=== PATIENT | female | born 1980 | race Two or more races ===

== ENCOUNTER 2016-12-01 13:10 | Emergency (ER) | payer BC ==
[~2016-12-01] VITALS: Ht 162.6 cm; Wt 68.0 kg
[~2016-12-01 13:10] MED LIST: AZITHROMYCIN250 MG PO; GUAIFENESIN DM118 M1 PO; NAPROSYN500 M1 ORAL; NKM; NORCO 5-325 TA1 EACH ORAL
--- NOTE | 2016-12-01 13:58 | Emergency Room Report ---
History of Present Illness General Chief Complaint: Upper Respiratory Illness Source: Patient Present Illness HPI 36-year-old female presents to emergency Department complaining of cough, wheezing, rhinorrhea times one week. Patient states that she finished a Z-Dharmesh and yesterday was seen at an urgent care and given a shot of penicillin. Patient states that her symptoms have not improved. Patient states she is out of albuterol for the nebulizer at home. Patient also states she took a round of prednisone which improved her wheezing. Denies nausea, vomiting, fevers, chills. Denies CP, Palpitations, LOC, AMS, dizziness, Changes in Vision, Sensation, paresthesias, or a sudden severe headache. Allergies: Coded Allergies: No Known Allergies (Unverified , 12/02/12) Patient History Past Medical History: see triage record Past Surgical History: none Pertinent Family History: none Last Menstrual Period: 11/04/16 Now: No Immunizations: UTD Reviewed Nursing Documentation: PMH: Agreed, PSxH: Agreed Nursing Documentation-PMH Hx Cardiac Problems: Yes - hypothyroidism History Of Psychiatric Problem: Yes - Anxiety Review of Systems All Other Systems: negative except mentioned in HPI Physical Exam Vital Signs Date Time Temp Pulse Resp B/P Pulse Ox O2 Delivery O2 Flow Rate FiO2 12/01/16 13:33 98.4 92 16 112/75 98 Room Air Sp02 EP Interpretation: reviewed, normal General Appearance: no apparent distress, alert, GCS 15, non-toxic Head: normocephalic, atraumatic Eyes: bilateral eye PERRL, bilateral eye normal inspection ENT: hearing grossly normal, normal pharynx, no angioedema, normal voice Neck: full range of motion, supple/symm/no masses Respiratory: chest non-tender, lungs clear, normal breath sounds, no rhonchi, no respiratory distress, no retraction, no accessory muscle use, speaking full sentences, wheezing - diffuse/scant wheezes on expiration bilaterally. Cardiovascular #1: regular rate, rhythm, no edema Musculoskeletal: back normal, gait/station normal, normal range of motion, non- tender, no calf tenderness Neurologic: alert, oriented x3, responsive, motor strength/tone normal, sensory intact, speech normal Psychiatric: judgement/insight normal, memory normal, mood/affect normal, no suicidal/homicidal ideation Reflexes: 4+ bicep (R), 4+ bicep (L), 4+ tricep (R), 4+ tricep (L), 4+ knee (R) , 4+ knee (L) Skin: normal color, no rash, warm/dry, well hydrated Lymphatic: no adenopathy Medical Decision Making PA Attestation Dr. douglas is my supervising Physician whom patient management has been discussed with. Diagnostic Impression: Primary Impression: Upper respiratory infection Qualified Codes: J06.9 - Acute upper respiratory infection, unspecified; B97.89 - Other viral agents as the cause of diseases classified elsewhere Additional Impression: Bronchitis ER Course Pt. presents to the ED c/o dry cough and chest congestion x 1 week. pt. has already finished Z-Dharmesh, and prednisone burst. Ddx considered but are not limited to URI, pneumonia, PE, strep pharyngitis, meningitis, bronchitis, asthma exacerbation Vital signs: Pt.is afebrile VS are WNL H&PE are most consistent with bronchitis, d/w pt. that symptoms were most likely due to viral infection since antibiotics provided no relief. ORDERS: none required at this time, the diagnosis is clinical ED INTERVENTIONS: None required at this time. DISCHARGE: At this time pt. is stable for d/c to home. Will provide printed patient care instructions, and any necessary prescriptions. Care plan and follow up instructions have been discussed with the patient prior to discharge. Last Vital Signs Date Time Temp Pulse Resp B/P Pulse Ox O2 Delivery O2 Flow Rate FiO2 12/01/16 13:33 98.4 92 16 112/75 98 Room Air Disposition: HOME, SELF-CARE Condition: Stable Scripts Loratadine (CLARITIN) 10 Mg Tablet 10 MG ORAL DAILY, #30 TAB Prov: Doreen Pradhan.Fern 12/01/16 Albuterol Sulfate* (ALBUTEROL SULFATE HHN*) 2.5 Mg/3 Ml Vial.neb 3 ML INH Q6H Y for Shortness of Breath, #30 EA 0 Refills Prov: Doreen Pradhan.Fern 12/01/16 Codeine/Promethazine Hcl* (PROMETHAZINE-CODEINE SYRUP*) 118 Ml Syrup 5 ML ORAL Q6H Y for For Cough, #118 ML 0 Refills Prov: Doreen Pradhan 12/01/16 Patient Instructions: Upper Respiratory Infection, Adult Additional Instructions: Take medications as directed. Follow up with PCP in 3-5 days Return sooner to ED if new symptoms occur, or current symptoms become worse. Do not drink alcohol, drive, or operate heavy machinery while taking Cough Syrup as this may cause drowsiness. Doreen Pradhan. Dec 01, 2016 13:58
[2016-12-01] MEDS ORDERED: PROMETHAZINE-C118 M1 ORAL (14:01)
[2016-12-01] MEDS ORDERED: CLARITIN10 MG ORAL (14:01)
[2016-12-01] MEDS ORDERED: ALBUTEROL2.5 MG/3 M INH (14:01)
[2016-12-01 14:14] VITALS: BP 112/75
[2016-12-01 14:17] VITALS: BP 112/75
== END 2016-12-01 14:33 | disposition home or self-care (01) ==
LOC: EMR 13:52
DX: J06.9 Acute upper respiratory infection, unspecified (principal); J40 Bronchitis, not specified as acute or chronic; E03.9 Hypothyroidism, unspecified; F41.9 Anxiety disorder, unspecified
CPT/HCPCS: 99282